=== PATIENT | female | born 1955 | race African-American/Black ===

== ENCOUNTER 2021-02-26 18:57 | Observation (INO) ==
[2021-02-26] MEDS ORDERED: ONDANSETRON 4 MG/2 ML VIAL IV ONE (19:26)
[2021-02-26] MEDS ORDERED: MORPHINE 4 MG/1 ML VIAL IV STA (19:26)
[2021-02-26 20:12] LABS: Basophils % 0.4 % (0.0-0.8); Eosinophils # 0.1 10*3/uL (0.0-0.87); Eosinophils % 0.7 % (0.00-10.9); Hematocrit 36.2 VOL% (35.7-47.0); Hemoglobin 11.7 GM/DL (12.0-16.0); Immature Granulocytes % 0.4 %; Immature Granulocytes Absolute 0.03 #; Lymphocytes % 27.5 % (21.3-54.2); Mean Corpuscular HGB Conc 32.3 GM/DL (32-36); Mean Corpuscular Volume 91.2 FL (87-102); Platelet Count 242 T/CUMM (130-400); Red Blood Count 3.97 MC/CUMM (3.8-5.5); Red Cell Distribution Width 13.5 % (9.3-17.3); White Blood Count 7.4 T/CUMM (4-12)
[2021-02-26 20:25] LABS: INR 1.1; PT Patient Result 11.8 SECS (10.5-12.0); Partial Thromboplastin Time 25.9 SECS (23.9-33.8)
[2021-02-26 20:32] LABS: Albumin 3.2 G/DL (3.4-5.0); Bilirubin,Total 0.5 MG/DL (0.2-1.0); Calcium 8.9 MG/DL (8.5-10.1); Osmolality,Calculated 275.5 MOS/KG (273-304); Potassium 3.2 MMOL/L (3.5-5.1); Total Protein 7.7 G/DL (6.4-8.2)
[2021-02-26 21:46] LABS: Eosinophils 2 % (0-10); Lymphocytes 25 % (20-55); Platelet Estimate Normal; Segmented Neutrophils 65 % (50-85); Total Cells Counted 100
[2021-02-27] MEDS ORDERED: DOCUSATE SODIUM 100 MG CAPSULE PO PRN (00:12)
[2021-02-27] MEDS ORDERED: DEXTROSE 50% 25 GM/50 ML VIAL IV PRN (00:12)
[2021-02-27] MEDS ORDERED: ONDANSETRON 4 MG/2 ML VIAL IV PRN (00:12)
[2021-02-27] MEDS ORDERED: GLUCAGON 1 MG VIAL IM PRN (00:12)
[2021-02-27] MEDS ORDERED: MAGNESIUM SULF RIDER 2 GM/50 ML PREMIX IV PRN (00:13)
[2021-02-27] MEDS ORDERED: MAGNESIUM SULF RIDER 4 GM/100 ML PREMIX IV PRN (00:13)
[2021-02-27] MEDS ORDERED: POTASSIUM CHLORIDE 20 MEQ TABLET PO STA (00:14)
[2021-02-27] MEDS: ENOXAPARIN 40 MG/0.4 ML SYRINGE SUBCUT SCH ×2 (00:35→23:30)
[2021-02-27] MEDS: HYDROmorphone 2 MG/1 ML VIAL IV PRN ×2 (01:41→10:50)
[2021-02-27 05:13] LABS: Basophils % 0.6 % (0.0-0.8); Eosinophils # 0.1 10*3/uL (0.0-0.87); Eosinophils % 1.5 % (0.00-10.9); Hematocrit 32.7 VOL% (35.7-47.0); Immature Granulocytes % 0.2 %; Immature Granulocytes Absolute 0.01 #; Lymphocytes % 37.3 % (21.3-54.2); Mean Corpuscular HGB Conc 33.6 GM/DL (32-36); Mean Corpuscular Volume 89.6 FL (87-102); Mean Platelet Volume 11.3 FL (9.6-12.0); Monocytes % 12.6 % (1.7-12.7); Neutrophils % 47.8 % (38.7-73.9); Platelet Count 217 T/CUMM (130-400); Red Blood Count 3.65 MC/CUMM (3.8-5.5); Red Cell Distribution Width 13.7 % (9.3-17.3); White Blood Count 5.2 T/CUMM (4-12)
[2021-02-27 05:50] LABS: Albumin 2.7 G/DL (3.4-5.0); Bilirubin,Total 0.7 MG/DL (0.2-1.0); Calcium 8.7 MG/DL (8.5-10.1); Osmolality,Calculated 277.4 MOS/KG (273-304); Potassium 3.3 MMOL/L (3.5-5.1); Risk Ratio 3.29; Total Protein 6.5 G/DL (6.4-8.2)
[2021-02-27] MEDS: POTASSIUM CHLORIDE 20 MEQ TABLET PO PRN ×2 (07:20→08:42)
[2021-02-27] MEDS: METOPROLOL TARTRATE 50 MG TABLET PO SCH ×2 (12:30→20:23)
[2021-02-27] MEDS: ASPIRIN CHEW 81 MG TABLET PO SCH (12:30)
[2021-02-27] MEDS ORDERED: DIAZEPAM 5 MG TABLET PO ONE (14:48)
[2021-02-27] MEDS ORDERED: oxyCODONE IR 5 MG TABLET PO PRN (15:41)
[2021-02-27] MEDS: gemfibroziL 600 MG TABLET PO SCH (16:26)
[2021-02-27] MEDS: PENTOXIFYLLINE 400 MG TABLET PO SCH (20:23)
[2021-02-27] MEDS: METHOCARBAMOL 750 MG TABLET PO SCH (20:23)
[2021-02-27] MEDS: GABAPENTIN 600 MG TABLET PO SCH (20:23)
[2021-02-27] MEDS ORDERED: rOPINIRole 1 MG TABLET PO SCH (21:00)
[2021-02-28 06:24] LABS: Basophils % 0.7 % (0.0-0.8); Eosinophils # 0.1 10*3/uL (0.0-0.87); Eosinophils % 3.1 % (0.00-10.9); Hemoglobin 11.1 GM/DL (12.0-16.0); Immature Granulocytes % 0.2 %; Immature Granulocytes Absolute 0.01 #; Lymphocytes # 1.5 10*3/uL (1.4-4.0); Lymphocytes % 34.2 % (21.3-54.2); Mean Corpuscular HGB Conc 32.6 GM/DL (32-36); Mean Corpuscular Volume 91.6 FL (87-102); Monocytes % 12.8 % (1.7-12.7); Platelet Count 238 T/CUMM (130-400); Red Blood Count 3.71 MC/CUMM (3.8-5.5); Red Cell Distribution Width 13.8 % (9.3-17.3); White Blood Count 4.5 T/CUMM (4-12)
[2021-02-28 06:55] LABS: Albumin 2.9 G/DL (3.4-5.0); Bilirubin,Total 0.5 MG/DL (0.2-1.0); Calcium 8.9 MG/DL (8.5-10.1); Osmolality,Calculated 278.4 MOS/KG (273-304); Potassium 3.6 MMOL/L (3.5-5.1); Total Protein 6.8 G/DL (6.4-8.2)
[2021-02-28] MEDS ORDERED: LEVOTHYROXINE 137 MCG TABLET PO SCH (07:00)
[2021-02-28 08:22] VITALS: BP 147/77
[2021-02-28] MEDS: METOPROLOL TARTRATE 50 MG TABLET PO SCH (09:14)
[2021-02-28] MEDS: GABAPENTIN 600 MG TABLET PO SCH (09:14)
[2021-02-28] MEDS: METHOCARBAMOL 750 MG TABLET PO SCH (09:14)
[2021-02-28] MEDS: gemfibroziL 600 MG TABLET PO SCH (09:14)
[2021-02-28] MEDS: ASPIRIN CHEW 81 MG TABLET PO SCH (09:14)
[2021-02-28] MEDS: PENTOXIFYLLINE 400 MG TABLET PO SCH (09:15)
== END 2021-02-28 14:00 | disposition home health service (06) ==
LOC: EDUNIT# → EDBD → N.ED 18:57 → N.EDINP 18:57 → SUATTDRO 23:15 → N.TELEN 23:39
PROVIDERS: ADMIT Internal Medicine; ATTEND Internal Medicine